=== PATIENT | female | born 1965 | race Hispanic/Latino ===

== ENCOUNTER 2016-10-13 09:42 | Emergency (ER) | payer OTHER ==
[~2016-10-13] VITALS: Ht 157.5 cm; Wt 78.9 kg
[~2016-10-13 09:42] MED LIST: OXYCONTIN30 M1 PO
--- NOTE | 2016-10-13 10:15 | ED MVC/FALL/TRAUMA COMPLAINT ---
History of Present Illness General Chief Complaint: Fall Stated Complaint: BODY PAIN S/P FALL Source: patient, family Exam Limitations: no limitations Vital Signs & Intake/Output Vital Signs & Intake/Output Vital Signs Date Time Temp Pulse Resp B/P Pulse O2 O2 Flow FiO2 Ox Delivery Rate 10/13 1150 98.2 74 18 121/74 99 Room Air 10/13 0949 97.7 92 16 127/88 98 Room Air Allergies Coded Allergies: acetaminophen (From VICODIN) (UNKNOWN 07/20/16) hydrocodone (From VICODIN) (UNKNOWN 07/20/16) Reconcile Medications Oxycodone HCl 10 MG TABLET 1 TAB PO TIDPRN PRN PAIN (Reported) Triage Note: PT STATES SHE FELL DOWN 14 STAIRS AND NOW HAS PAIN IN HER LEFT SHOULDER AND RIGHT WARREN. PT STATES HER SON JUMPED ON HER BACK AND SHE FELL. PT DROVER HER SON TO SCHOOL AND WHILE THERE THE STAFF CALLED 911 FOR HER AFTER SHE TOLD THEM THE STORY. Triage Nurses Notes Reviewed? yes HPI: Patient states that she was at the top of her stairs when her child grabbed her neck and the patient lost her balance. Patient states that she fell down 13 steps. Patient states that she cannot take any steps on the way down and she only landed on the carpeted floor at the bottom. Patient states that she hit her head but there is no loss consciousness. Patient pain complaint is pain to her left shoulder. The pain is constant and is sharp in nature. The pain is 10 out of 10. The pain increases with any movement. There is no weakness or numbness. Patient also complaining of a throbbing pain to her right warren. The pain is 4 out of 10. There is no radiation. There are no aggravating or mitigating factors. Patient is able to ambulate. Patient is also complaining of a throbbing pain to her left knee. The pain is 2 out of 10. There is no radiation of the pain. There are no aggravating or mitigating factors. Past History Travel History Traveled to [place] past 21 day No Medical History Any Pertinent Medical History? see below for history Neurological: NONE EENT: NONE Cardiovascular: NONE Respiratory: NONE Gastrointestinal: NONE Hepatic: NONE Renal: NONE Musculoskeletal: chronic back pain Psychiatric: NONE Endocrine: NONE Blood Disorders: NONE Cancer(s): NONE RAMP FLIGHT ATTENDANT/Reproductive: NONE Surgical History Surgical History: non-contributory Psychosocial History What is your primary language New Zealander Tobacco Use: Current Daily Use Daily Tobacco Use Amount/Type: => 5 Cigarettes daily ETOH Use: occasional use Illicit Drug Use: denies illicit drug use Family History Hx Contributory? No Review of Systems Review of Systems Constitutional: Reports: no symptoms. Eyes: Reports: no symptoms. Ears, Nose, Throat, Mouth: Reports: no symptoms. Respiratory: Reports: no symptoms. Cardiovascular: Reports: no symptoms. Gastrointestinal/Abdominal: Reports: no symptoms. Genitourinary: Reports: no symptoms. Musculoskeletal: Reports: see HPI, joint pain, muscle pain. Skin: Reports: no symptoms. Neurological/Psychological: Reports: no symptoms. All Other Systems: Reviewed and Negative Physical Exam Physical Exam General Appearance: well developed/nourished, alert, awake, moderate distress Head: ABRASION AROUND RIGHT EYE Eyes: Bilateral: PERRL, EOMI. Ears, Nose, Throat, Mouth: hearing grossly normal, moist mucous membrane Neck: normal inspection, supple, full range of motion, paraspinous muscle tender Respiratory: normal breath sounds, chest non-tender, no respiratory distress, lungs clear Cardiovascular: regular rate/rhythm, normal peripheral pulses Gastrointestinal: normal bowel sounds, soft, non-tender, no organomegaly Back: normal inspection, normal range of motion Extremities: limited range of motion, pain with movement Neurologic/Psych: no motor/sensory deficits, awake, alert, oriented x 3, normal mood/affect Skin: intact, normal color, warm/dry Core Measures ACS in differential dx? No Severe Sepsis Present: No Septic Shock Present: No Progress Differential Diagnosis: abd injury, C/T/L spine injury, ext injury, ICH Plan of Care: Orders Procedure Date/time Status XRY-KNEE, LEFT 10/13 1111 Active XRY-SHOULDER COMPLETE-LEFT 10/13 1023 Active [id number], RIGHT 10/13 1023 Active Diagnostic Imaging: Viewed by Me: CT Scan. Discussed w/RAD: CT Scan. Radiology Impression: PATIENT: HIPOLITO KEYS I PRESENT AGE: 51 PATIENT ACCOUNT NO: [id number] : 65 LOCATION: [facility] ORDERING PHYSICIAN: NASRA FORDE MD SERVICE DATE: 10/13/16 EXAM TYPE: CAT - CT CERV SPINE WO IV CONTRAST; CT HEAD WO IV CONTRAST; CT MAXILLOFACIAL W/O CON EXAMINATION: CT HEAD CT CERVICAL SPINE CT MAXILLOFACIAL BONES CLINICAL INFORMATION: Fall. Head injury. COMPARISON: None available at time of dictation TECHNIQUE: Computer tomography of the head, cervical spine and maxillofacial bones were performed without intravenous contrast. FINDINGS: CT head: There is no intracranial hemorrhage. There is no evidence of acute/ subacute cerebral or cerebellar infarction. There is minimal microvascular ischemic change. There is no extra-axial fluid collection. There is no midline shift. The ventricles are normal in size and configuration. The orbits are unremarkable. Paranasal sinuses are clear. There is no depressed skull fracture. CT cervical spine: There is mild reversal of the cervical lordosis. There is minimal anterolisthesis of C4 in relation to C5. Alignment is otherwise maintained. Posterior elements are well aligned. The prevertebral soft tissue is normal. The C1-C2 relationship is normal. The dens is intact. Visualized vertebrae demonstrate normal stature. There is mild narrowing of the C2-C3 intervertebral disc space. There is facet arthropathy throughout the mid cervical spine. No fracture. No dislocation. Maxillofacial bone CT: There is no acute facial bone fracture. The paranasal sinuses and mastoid air cells are clear. The orbits are unremarkable. The nasal septum is deviated towards the right side. IMPRESSION: 1. No acute intracranial hemorrhage. 2. Minimal microvascular ischemic disease. 3. No acute cervical spine abnormality. 4. No facial bone fracture. DICTATED BY: ROSIBEL PRITCHARD MD DATE/TIME DICTATED:10/13/161111 HORSE STUD WORKER:KHUSHI DATE/TIME TRANSCRIBED:10/13/161111 CONFIDENTIAL, DO NOT COPY WITHOUT APPROPRIATE AUTHORIZATION. <Electronically signed in Other Vendor System> SIGNED BY: ROSIBEL PRITCHARD MD 10/13/16 1131, PATIENT: HIPOLITO KEYS I PRESENT AGE: 51 PATIENT ACCOUNT NO: [id number] : 65 LOCATION: [facility] ORDERING PHYSICIAN: NASRA FORDE MD SERVICE DATE: 10/13/16 EXAM TYPE: RAD - XRY-KNEE, LEFT; [id number], RIGHT EXAMINATION: XR TIBIA AND FIBULA, RIGHT XR KNEE, LEFT CLINICAL INFORMATION: Left knee pain and right leg pain after fall downstairs. COMPARISON: None TECHNIQUE: Left knee, 4 views Right leg, AP and lateral views ( 2 views) FINDINGS: Left knee: Bones have normal alignment and joint spaces are maintained. No acute fracture, subluxation or joint effusion. Small marginal osteophytes are present at patellofemoral and tibiofemoral compartments. There is an enthesophyte at the upper pole of the patella. Right leg: The tibia and fibula are intact. Bones have normal alignment at the knee and ankle. Small marginal osteophytes are present at the patellofemoral and medial tibiofemoral compartments of the knee. IMPRESSION: 1. No acute osseous injury in the left knee or right leg. 2. Mild osteoarthrosis of both knees. DICTATED BY: ANGUS RETANA MD DATE/TIME DICTATED:10/13/161151 HORSE STUD WORKER:KHUSHI DATE/TIME TRANSCRIBED:10/13/161151 CONFIDENTIAL, DO NOT COPY WITHOUT APPROPRIATE AUTHORIZATION. <Electronically signed in Other Vendor System> SIGNED BY: ANGUS RETANA MD 10/13/161156, PATIENT: HIPOLITO KEYS I PRESENT AGE: 51 PATIENT ACCOUNT NO: [id number] : 65 LOCATION: [facility] ORDERING PHYSICIAN: NASRA FORDE MD SERVICE DATE: 10/13/16 EXAM TYPE: RAD - XRY-SHOULDER COMPLETE-LEFT EXAMINATION: XR SHOULDER, LEFT CLINICAL INFORMATION: Pain after fall. COMPARISON: None TECHNIQUE: AP external rotation, Grashey, scapular Y, and axillary views of the left shoulder. FINDINGS: There is normal alignment at the glenohumeral and acromioclavicular joints. There is mild osteoarthrosis of the acromioclavicular joint. Acromial enthesophyte is seen at the level of coracoclavicular ligament attachment; this finding can be associated with chronic subacromial impingement disorder. No focal soft tissue swelling. The visualized left lung apex is normal. IMPRESSION: 1. No acute findings at the left shoulder. 2. Mild osteoarthrosis of the acromioclavicular joint. 3. Acromial enthesophyte is noted -- a finding that can be associated with subacromial impingement disorder. DICTATED BY: ANGUS RETANA MD DATE/TIME DICTATED:10/13/161149 HORSE STUD WORKER:RUBIO DATE/TIME TRANSCRIBED:03/09/ 17 / 1150 CONFIDENTIAL, DO NOT COPY WITHOUT APPROPRIATE AUTHORIZATION. < Electronically signed in Other Vendor System> SIGNED BY: ANGUS RETANA MD 10/13/16 3884 Comments: Patient has no midline cervical tenderness however she has distracting injury so we will obtain a CAT scan of her cervical spine. Departure Departure Disposition: HOME OR SELF CARE Condition: Stable Clinical Impression Primary Impression: Shoulder injury Secondary Impressions: Head injury Referrals: SHANTA BLANCHARD,AMY Saenz (PCP/Family) Additional Instructions: WEAR SLING FOR COMFORT RETURN IF SYMPTOMS WORSEN OR FOR ANY CONCERNS Departure Forms: Customer Survey General Discharge Information Prescriptions: Current Visit Scripts Cyclobenzaprine HCl 1 TAB PO Q8P #20 TAB Procedures Splinting Location: LEFT SHOULDER Manual Alignment Performed: No Pre-Made Type: SLING Splint: SLING Splint Applied By: splint applied by other Pre-Proc Neuro Vasc Exam: normal Post-Proc Neuro Vasc Exam: normal
--- NOTE | 2016-10-13 11:31 | CT SCAN REPORT ---
EXAMINATION: CT HEAD CT CERVICAL SPINE CT MAXILLOFACIAL BONES CLINICAL INFORMATION: Fall. Head injury. COMPARISON: None available at time of dictation TECHNIQUE: Computer tomography of the head, cervical spine and maxillofacial bones were performed without intravenous contrast. FINDINGS: CT head: There is no intracranial hemorrhage. There is no evidence of acute/subacute cerebral or cerebellar infarction. There is minimal microvascular ischemic change. There is no extra-axial fluid collection. There is no midline shift. The ventricles are normal in size and configuration. The orbits are unremarkable. Paranasal sinuses are clear. There is no depressed skull fracture. CT cervical spine: There is mild reversal of the cervical lordosis. There is minimal anterolisthesis of C4 in relation to C5. Alignment is otherwise maintained. Posterior elements are well aligned. The prevertebral soft tissue is normal. The C1-C2 relationship is normal. The dens is intact. Visualized vertebrae demonstrate normal stature. There is mild narrowing of the C2-C3 intervertebral disc space. There is facet arthropathy throughout the mid cervical spine. No fracture. No dislocation. Maxillofacial bone CT: There is no acute facial bone fracture. The paranasal sinuses and mastoid air cells are clear. The orbits are unremarkable. The nasal septum is deviated towards the right side. IMPRESSION: 1. No acute intracranial hemorrhage. 2. Minimal microvascular ischemic disease. 3. No acute cervical spine abnormality. 4. No facial bone fracture.
[2016-10-13 11:50] VITALS: BP 121/74
[2016-10-13] MEDS ORDERED: OXYCODONE HCL10 M2 PO (11:50)
--- NOTE | 2016-10-13 11:55 | RADIOLOGY REPORT ---
EXAMINATION: XR SHOULDER, LEFT CLINICAL INFORMATION: Pain after fall. COMPARISON: None TECHNIQUE: AP external rotation, Grashey, scapular Y, and axillary views of the left shoulder. FINDINGS: There is normal alignment at the glenohumeral and acromioclavicular joints. There is mild osteoarthrosis of the acromioclavicular joint. Acromial enthesophyte is seen at the level of coracoclavicular ligament attachment; this finding can be associated with chronic subacromial impingement disorder. No focal soft tissue swelling. The visualized left lung apex is normal. IMPRESSION: 1. No acute findings at the left shoulder. 2. Mild osteoarthrosis of the acromioclavicular joint. 3. Acromial enthesophyte is noted -- a finding that can be associated with subacromial impingement disorder.
--- NOTE | 2016-10-13 11:57 | RADIOLOGY REPORT ---
EXAMINATION: XR TIBIA AND FIBULA, RIGHT XR KNEE, LEFT CLINICAL INFORMATION: Left knee pain and right leg pain after fall downstairs. COMPARISON: None TECHNIQUE: Left knee, 4 views Right leg, AP and lateral views (2 views) FINDINGS: Left knee: Bones have normal alignment and joint spaces are maintained. No acute fracture, subluxation or joint effusion. Small marginal osteophytes are present at patellofemoral and tibiofemoral compartments. There is an enthesophyte at the upper pole of the patella. Right leg: The tibia and fibula are intact. Bones have normal alignment at the knee and ankle. Small marginal osteophytes are present at the patellofemoral and medial tibiofemoral compartments of the knee. IMPRESSION: 1. No acute osseous injury in the left knee or right leg. 2. Mild osteoarthrosis of both knees.
[2016-10-13] MEDS ORDERED: CYCLOBENZAPRINE10 M1 PO (12:16)
[2016-10-14] MEDS ORDERED: CYCLOBENZAPRINE10 M1 PO (09:41)
== END 2016-10-13 12:28 ==
LOC: ERH 09:42
DX: S49.92XA Unspecified injury of left shoulder and upper arm, initial encounter (principal); S09.90XA Unspecified injury of head, initial encounter; W10.9XXA Fall (on) (from) unspecified stairs and steps, initial encounter
CPT/HCPCS: 73030-LT; 73560-LT; 73590-RT

== ENCOUNTER 2017-01-06 16:13 | Emergency (ER) | payer OTHER ==
[~2017-01-06] VITALS: Ht 157.5 cm; Wt 74.8 kg
[~2017-01-06 16:13] MED LIST changes: +CYCLOBENZAPRINE10 M1 PO; +OXYCODONE HCL10 M2 PO
--- NOTE | 2017-01-06 16:39 | ED CARDIAC/CP/PALPITATIONS ---
History of Present Illness General Chief Complaint: Chest Pain Stated Complaint: PT IS HAVING PROBLEM BREATHING,CHEST PAIN Source: patient Exam Limitations: no limitations Vital Signs & Intake/Output Vital Signs & Intake/Output Vital Signs Date Time Temp Pulse Resp B/P B/P Pulse O2 O2 Flow FiO2 Mean Ox Delivery Rate 01/06 2022 96.0 78 18 134/84 98 Room Air / 1836 96.3 83 18 126/81 96 Room Air 01/06 1655 97 Room Air 01/06 1654 97.1 94 18 135/82 97 Room Air 01/06 1616 98.6 108 18 122/84 98 Room Air Allergies Coded Allergies: hydrocodone (From VICODIN) (LIPS SWELLED 01/06/17) Reconcile Medications No Known Home Medications Triage Note: 51 YO FEMALE TO TRIAGE FROM WALK IN [place]. STATES SHE HAD CHEST PAIN RADIATING TO L ARM. STATES WENT TO THE WALK IN WHO WANTED TO CALL AN AMBLANCE BUT SHE REFUSED. DENIES SOB. PT TAKEN TO [facility] FOR EKG. Triage Nurses Notes Reviewed? yes Onset: Abrupt Duration: better, gone now Timing: single episode today Location: substernal Radiation: shoulders Activities at Onset: none HPI: Patient is a 51-year-old female with a past medical history of chronic back pain who presents emergency room with concerns at 1400 [address] of substernal chest heaviness and left arm pain and shortness of breath. Prior to arrival patient's symptoms have significantly improved in which she states that the symptoms only lasted for 15 minutes. Patient denies any illicit drug use but does smoke tobacco. Patient does state that partially 2 weeks ago she had similar sick symptoms are completely resolved where patient did not receive medical evaluation. Patient currently states that she just feels anxious and is attribute her symptoms to anxiety where she states that she currently is trying to establish a psychiatrist where she is being evaluated within the next week for her symptoms. (ASHLEY PINO) Past History Travel History Traveled to [place] past 21 day No Medical History Any Pertinent Medical History? see below for history Neurological: NONE EENT: NONE Cardiovascular: NONE Respiratory: NONE Gastrointestinal: NONE Hepatic: NONE Renal: NONE Musculoskeletal: chronic back pain Psychiatric: NONE Endocrine: NONE Blood Disorders: NONE Cancer(s): NONE TECHNICAL DOCUMENT WRITER/Reproductive: NONE Surgical History Surgical History: non-contributory Psychosocial History What is your primary language Ugandan Tobacco Use: Current Daily Use Daily Tobacco Use Amount/Type: => 5 Cigarettes daily Family History Hx Contributory? No (ASHLEY IPNO) Review of Systems Review of Systems Constitutional: Reports: no symptoms. EENTM: Reports: no symptoms. Respiratory: Reports: see HPI. Cardiovascular: Reports: see HPI, chest pain. GI: Reports: no symptoms. Genitourinary: Reports: no symptoms. Musculoskeletal: Reports: see HPI. Skin: Reports: no symptoms. Neurological/Psychological: Reports: no symptoms. Hematologic/Endocrine: Reports: no symptoms. Immunologic/Allergic: Reports: no symptoms. All Other Systems: Reviewed and Negative (ASHLEY PINO) Physical Exam Physical Exam General Appearance: no apparent distress, alert, comfortable Cardiovascular: regular rate/rhythm Comments: Well-developed well-nourished person in no acute distress HEENT: Normal EENT exam, Neck: Supple, no lymphadenopathy, normal range of motion without pain or tenderness Back: Nontender, no CVA tenderness. Cardiovascular: Regular rate and rhythms no murmurs rubs or gallops, normal JVP Respiratory: Chest nontender. No respiratory distress.breath sounds clear to auscultation bilaterally Abdomen: Soft, nontender nondistended, no appreciable organomegaly. Normal bowel sounds. No ascites Extremity: No edema, no calf tenderness to palpation, normal and equal pulses. Neuro: Alert oriented x3, motor sensory NORMAL Skin: No appreciable rash on exposed skin, skin is warm and dry. Psych: Mood and affect is normal, memory and judgment is normal. Core Measures ACS in differential dx? Yes Severe Sepsis Present: No Septic Shock Present: No (ASHLEY PINO) Progress Differential Diagnosis: AMI, aortic dissection, atrial fibrillation, cholecystitis, CHF/pulm edema, costochondritis, hyperkalemia, hypovolemia, hyperthyroid, hyperventilation, intracranial hemorrhage, musculoskeletal pain, myocarditis, pancreatitis, pericarditis, pneumonia, pneumothorax, PSVT, pulmonary embolism, PUD/GERD, PVCs/PACs, respiratory failure, rib fracture, sepsis, unstable angina, V-fib/V-Tach, WPW syndrome Plan of Care: Orders Procedure Date/time Status Heart Healthy Diet 01/07 B Active TROPONIN LEVEL 01/06 2030 Complete EKG 01/06 2030 Active EKG 01/06 1852 Active Add-on Test (ER Only) 01/06 1659 Active D-DIMER 01/06 1659 Complete TROPONIN LEVEL 01/06 161 Complete COMPREHENSIVE METABOLIC PANEL 01/06 161 Complete CBC WITHOUT DIFFERENTIAL 01/06 161 Complete EKG 01/06 1614 Active Laboratory Tests 01/06/17 2030: Troponin I < 0.01 01/06/17 1852: Troponin I Cancelled 01/06/17 1628: Anion Gap 12, Estimated GFR > 60, BUN/Creatinine Ratio 16.3, Glucose 98, Calcium 9.7, Total Bilirubin 0.6, AST 48 H, ALT 71 H, Alkaline Phosphatase 109, Troponin I < 0.01, Total Protein 7.6, Albumin 4.5, Globulin 3.1, Albumin/ Globulin Ratio 1.5, D-Dimer High Sensitivty < 200, CBC w Diff NO MAN DIFF REQ, RBC 5.07, MCV 87.2, MCH 29.1, RDW 21.0 H, MPV 8.4, Gran % 61.4, Lymphocytes % 31.9, Monocytes % 5.2, Eosinophils % 1.4, Basophils % 0.1, Absolute Granulocytes 5.8, Absolute Lymphocytes 3.0, Absolute Monocytes 0.5, Absolute Eosinophils 0.1, Absolute Basophils 0, PUBS MCHC 33.4 Patient on the emergency room was asymptomatic and denies any exacerbation of presenting complaints. Patient had negative d-dimer essentially ruling out pulmonary embolism. 2 sets of cardiac enzymes 4 hours apart were unremarkable as well as 2 EKGs 4 hours apart. Upon discharge patient looks well no apparent distress. Patient had normal sinus rhythm on telemetry. Patient was strongly advised to follow up with cardiology (ELIZABETH HAMILTON,ASHLEY) Diagnostic Imaging: Viewed by Me: Radiology Read. Radiology Impression: no acute abnormality, no fracture Initial ED EKG: normal intervals, normal p-waves, normal QRS complex, NSR, 107 BPM Comments: PATIENT: HIPOLITO KEYS I PRESENT AGE: 51 PATIENT ACCOUNT NO: [id number] : 65 LOCATION: [facility] ([place] ORDERING PHYSICIAN: ASHLEY HAMILTON SERVICE DATE: 01/06/17 EXAM TYPE: RAD - XRY-CHEST XRAY, PA AND LATERAL EXAMINATION: XR CHEST CLINICAL INFORMATION: Chest pain. COMPARISON: None. TECHNIQUE: 2 views of the chest were obtained. FINDINGS: The lungs are well-expanded and clear without focal airspace consolidation. No pleural effusions or pneumothoraces are identified. Cardiomediastinal contours are within normal limits. Soft tissues are unremarkable. No acute osseous abnormality is identified. IMPRESSION: No acute pulmonary process. DICTATED BY: PATY ROTHMAN MD DATE/TIME DICTATED:01/06/171847 GLAZIER STRUCTURAL GLASS:KHUSHI DATE/TIME TRANSCRIBED:01/06/17 / (ASHLEY PINO) Departure Departure Disposition: HOME OR SELF CARE Condition: Stable Clinical Impression Primary Impression: Chest pain Referrals: SHANTA BLANCHARD,AMY Saenz (PCP/Family) Additional Instructions: As discussed on Monday please follow-up with hot mill roller Dr. Sullivan for further evaluation treatment. If symptoms worsen return to emergency room. Departure Forms: Customer Survey General Discharge Information Prescriptions: Current Visit Scripts No Known Home Medications (ASHLEY PINO) PA/NEWSPAPER INSERTER Co-Sign Statement Statement: ED Attending supervision documentation- [] I saw and evaluated the patient. I have also reviewed all the pertinent lab results and diagnostic results. I agree with the findings and the plan of care as documented in the PA's/NEWSPAPER INSERTER's documentation. [X] I have reviewed the ED Record and agree with the PA's/NEWSPAPER INSERTER's documentation. [] Additions or exceptions (if any) to the PAs/NEWSPAPER INSERTER's note and plan are summarized below: [] (ULICES BLANCHARD,SIMEON) Critical Care Note Critical Care Note Critical Care Time: non-applicable (ASHLEY PINO)
[2017-01-06 16:54] LABS: ABSOLUTE BASOPHIL COUNT 0 /CUMM (0.0-0.2); ABSOLUTE EOSINOPHIL COUNT 0.1 /CUMM (0.0-0.7); ABSOLUTE GRANULOCYTE CT 5.8 /CUMM (1.4-6.5); ABSOLUTE MONOCYTE COUNT 0.5 /CUMM (0.10-0.60); BASOPHIL % 0.1 % (0.0-2.0); EOSINOPHIL % 1.4 % (0-5); GRANULOCYTE % 61.4 % (42.2-75.2); HEMATOCRIT 44.2 % (37-47); MEAN CORPUSCULAR HGB 29.1 PG (27.0-31.0); MEAN CORPUSCULAR HGB CONC 33.4 G/DL (33.0-37.0); MEAN CORPUSCULAR VOLUME 87.2 FL (81.0-99.0); MEAN PLATELET VOLUME 8.4 FL (7.4-10.4); PLATELET COUNT 278 /CUMM (130-400); RED BLOOD CELL CT 5.07 /CUMM (4.20-5.40); WHITE BLOOD CELL COUNT 9.4 /CUMM (4.8-10.8)
--- NOTE | 2017-01-06 18:52 | RADIOLOGY REPORT ---
EXAMINATION: XR CHEST CLINICAL INFORMATION: Chest pain. COMPARISON: None. TECHNIQUE: 2 views of the chest were obtained. FINDINGS: The lungs are well-expanded and clear without focal airspace consolidation. No pleural effusions or pneumothoraces are identified. Cardiomediastinal contours are within normal limits. Soft tissues are unremarkable. No acute osseous abnormality is identified. IMPRESSION: No acute pulmonary process.
[2017-01-06 20:22] VITALS: BP 134/84
== END 2017-01-06 21:39 ==
LOC: ERH 16:13
PROVIDERS: Emergency Medicine
DX: R07.2 Precordial pain (principal)
CPT/HCPCS: 93005; 93010

== ENCOUNTER 2017-12-09 20:54 | Emergency (ER) | payer OTHER ==
[~2017-12-09 20:54] MED LIST changes: +PERCOCET 5-3251 EACH PO
[2017-12-09 20:56] VITALS: BP 171/87
--- NOTE | 2017-12-09 21:50 | ED UPPER/LOWER EXTREMITY COMPL ---
History of Present Illness General Chief Complaint: General Adult Stated Complaint: S/P SURGERY, IN PAIN Source: patient Exam Limitations: no limitations Vital Signs & Intake/Output Vital Signs & Intake/Output Vital Signs Date Time Temp Pulse Resp B/P B/P Pulse O2 O2 Flow FiO2 Mean Ox Delivery Rate 12/10 2055 96.8 90 20 171/87 97 Room Air ED Intake and Output 12/10 0000 12/09 1200 Intake Total 200 Output Total Balance 200 Intake, Oral 200 Allergies Coded Allergies: hydrocodone (From VICODIN) (LIPS SWELLED 01/06/17) Reconcile Medications Oxycodone HCl/Acetaminophen (Percocet 5-325 MG Tablet) 5 MG-325 MG TABLET 1 TAB PO 4XDP PRN PAIN TEN...[id number] Triage Note: PT TO TRIAGE SCREAMING IN PAIN S/P L SHOULDER SURGERY YESTERDAY. SURGERY DONE AT [facility]. 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 Triage Nurses Notes Reviewed? yes HPI: 52 yo F PMH LBP presenting with shoulder pain. 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 Denies fevers, chills, new numbness, motor weakness. (Janette BLANCHARD,Pawan) Past History Travel History Traveled to [place] past 21 day No Medical History Any Pertinent Medical History? see below for history Neurological: NONE EENT: NONE Cardiovascular: NONE Respiratory: NONE Gastrointestinal: NONE Hepatic: NONE Renal: NONE Musculoskeletal: chronic back pain Psychiatric: NONE Endocrine: NONE Blood Disorders: NONE Cancer(s): NONE GENERAL EDUCATION PROFESSOR/Reproductive: NONE Surgical History Surgical History: non-contributory Psychosocial History What is your primary language Faroese Tobacco Use: Never used Family History Hx Contributory? Yes (Janette BLANCHARD,Pawan) Review of Systems Review of Systems Constitutional: Reports: no symptoms. EENTM: Reports: no symptoms. Respiratory: Reports: no symptoms. Cardiovascular: Reports: no symptoms. Gastrointestinal/Abdominal: Reports: no symptoms. Genitourinary: Reports: no symptoms. Musculoskeletal: Reports: see HPI. Skin: Reports: no symptoms. Neurological/Psychological: Reports: no symptoms. Hematologic/Endocrine: Reports: no symptoms. Immunological: Reports: no symptoms. All Other Systems: Reviewed and Negative (Janette BLANCHARD,Pawan) Physical Exam Physical Exam General Appearance: well developed/nourished, mild distress Head: atraumatic Eyes: Bilateral: PERRL, EOMI. Ears, Nose, Throat: normal pharynx, normal ENT inspection, hearing grossly normal Neck: normal inspection, supple Cardiovascular/Respiratory: regular rate/rhythm Back: normal inspection Skin: intact, normal color, warm/dry Lymphatic: no anterior cervical stevie Comments: Left Upper Extremity: Surgical dressings in place over left shoulder, left arm in sling, No motor or sensory deficits of left hand, compartments soft, 2+ radial/ulnar pulses (Janette BLANCHARD,Pawan) Progress Differential Diagnosis: arterial insufficiency, cellulitis, CHF, compartment syndrome, contusion, dislocation, DVT, fracture, gout, septic arthritis, sprain, tendon injury Plan of Care: Current Medications Sig/Hillary Start time Last Medication Dose Stop Time Status Admin Oxycodone/ 1 TAB ONCE ONE 12/09 2214 UNVr Acetaminophen 12/10 2215 (Percocet) Physician MDM: 52 yo F PMH LBP presenting with shoulder pain. VSS, exam as above. DDx: Post-operative pain, low concern for acute infection, compartment syndrome. Medicate with percocet x2 with good pain relief. Discharged with return precautions, patient will obtain further pain control tomorrow. (Pawan Savage MD) Departure Departure Disposition: HOME OR SELF CARE Condition: Stable Clinical Impression Primary Impression: Left anterior shoulder pain Referrals: Usha BLANCHARD,Tulio Saenz (PCP/Family) Additional Instructions: Take your post-operative medications as prescribed. Follow up with your orthopedist in the next 2-3 days. Return to the ED for any new, worsening or concerning symptoms. Departure Forms: Customer Survey General Discharge Information (Pawan Savage MD) PA/FINANCE BUSINESS PARTNER Co-Sign Statement Statement: ED Attending supervision documentation- [] I saw and evaluated the patient. I have also reviewed all the pertinent lab results and diagnostic results. I agree with the findings and the plan of care as documented in the PA's/FINANCE BUSINESS PARTNER's documentation. [x] I have reviewed the ED Record and agree with the PA's/FINANCE BUSINESS PARTNER's documentation. [] Additions or exceptions (if any) to the PAs/FINANCE BUSINESS PARTNER's note and plan are summarized below: [] (Shelli BLANCHARD,Beltran Moyer)
[2018-01-11] MEDS ORDERED: PERCOCET 5-3251 EACH PO (11:41)
== END 2017-12-09 22:40 ==
LOC: ERH 20:54
DX: M25.512 Pain in left shoulder (principal)

== ENCOUNTER 2018-05-01 09:07 | Emergency (ER) | payer OTHER ==
[~2018-05-01] VITALS: Ht 157.5 cm; Wt 72.6 kg
[2018-05-01 09:13] VITALS: BP 125/72
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
[2018-05-01] MEDS ORDERED: PERCOCET 5-3251 EACH PO (12:56)
== END 2018-05-01 13:11 ==
LOC: ERH 09:07
DX: S49.92XA Unspecified injury of left shoulder and upper arm, initial encounter (principal); S69.91XA Unspecified injury of right wrist, hand and finger(s), initial encounter; M25.552 Pain in left hip; V28.1XXA Motorcycle passenger injured in noncollision transport accident in nontraffic accident, initial encounter; Y93.9 Activity, unspecified; Y92.9 Unspecified place or not applicable
CPT/HCPCS: 73030-LT; 73080-LT; 73140-RT